=== PATIENT | male | born 1975 | race Hispanic/Latino ===

== ENCOUNTER 2022-11-17 07:29 | Observation (INO) | payer OTHER ==
[2022-11-15 09:01] LABS: BASOPHILS % 0.5 % (0.0-1.0); EOSINOPHILS # (AUTO) 0.1 (0.0-0.4); EOSINOPHILS % 1.6 % (0.0-6.0); HEMATOCRIT 45.5 % (38.2-49.6); LYMPHOCYTES # (AUTO) 1.7 (1.0-3.2); LYMPHOCYTES % 26.3 % (18.0-39.1); MEAN CORPUSCULAR HEMOGLOBIN 30.4 pg (28-32); MEAN CORPUSCULAR HGB CONC 35.2 g/dL (31-35); MEAN CORPUSCULAR VOLUME 86.5 fL (81-99); MONOCYTES # (AUTO) 0.6 (0.2-0.8); MONOCYTES % 10.1 % (4.4-11.3); NEUTROPHILS # (AUTO) 3.9 (2.1-6.9); NEUTROPHILS % 61.2 % (38.7-80.0); PLATELET COUNT 249 x10e3/uL (140-360); RED BLOOD COUNT 5.26 x10e6/uL (4.3-5.7); RED CELL DISTRIBUTION WIDTH 12.8 % (11.7-14.4)
[2022-11-15 09:20] LABS: INR 0.89; PARTIAL THROMBOPLASTIN TIME 30.2 seconds (23.8-35.5); PROTHROMBIN TIME 12.3 seconds (11.9-14.5)
[2022-11-15 09:26] LABS: ANION GAP 11.4 mmol/L (8-16); BLOOD UREA NITROGEN 11 mg/dL (7-26); BUN/CREATININE RATIO 13 (6-25); CALCIUM 9.4 mg/dL (8.4-10.2); CARBON DIOXIDE 29 mmol/L (22-29); CHLORIDE 103 mmol/L (98-107); CREATININE, SERUM 0.88 mg/dL (0.72-1.25); GLUCOSE 99 mg/dL (74-118); POTASSIUM 4.4 mmol/L (3.5-5.1); SODIUM 139 mmol/L (136-145)
[~2022-11-17] VITALS: Ht 198.1 cm; Wt 68.0 kg
[~2022-11-17 07:29] MED LIST: DEXAMETHASONE SOD PHOS INJ 4 MG/ML SDV ONE; LIDOCAINE HCL 2% LOCAL INJ 5 ML SDV VIAL INJ ONE; ONDANSETRON HCL INJ 2MG/ML 2ML 2 MG/ML VIAL ONE; POVIDONE IODINE 0.05% 0.05 % ML PO ONE; PROPOFOL IV EMULSION 10 MG/ML 20 ML VIAL ONE; ROCURONIUM BROMIDE 10 MG/ML 5ML VIAL IV ONE; SEVOFLURANE INHAL SOLN 250 ML PEN BTL ONE; SUGAMMADEX SODIUM 200 MG/2 ML VIAL IV ONE; ULTRAM 50MG50 MG PO
[2022-11-17] MEDS ORDERED: CEFAZOLIN SODIUM 2 GM ONE (08:10)
[2022-11-17] MEDS ORDERED: ALBUTEROL SULF 0.083% NEB SOLN 3 ML NEB ONE (08:30)
[2022-11-17] MEDS ORDERED: FENTANYL CITRATE/PF 100MCG/2 ML INJ ONE ×2 (08:58→14:29)
[2022-11-17] MEDS ORDERED: MIDAZOLAM HCL 2 MG/2 ML VIAL ONE (08:58)
[2022-11-17] MEDS ORDERED: SUGAMMADEX SODIUM 200 MG/2 ML VIAL IV ONE (09:55)
[2022-11-17] MEDS ORDERED: ACETAMINOPHEN 1000 MG/100 ML 100 ML IV ONE (09:55)
[2022-11-17] MEDS ORDERED: CARISOPRODOL 350 MG TAB PO PRN (12:15)
[2022-11-17] MEDS ORDERED: ZOLPIDEM TARTRATE 5 MG TAB PO PRN (12:15)
[2022-11-17] MEDS: LACTATED RINGER'S 1,000 ML IV SCH ×2 (12:15→17:27)
[2022-11-17] MEDS ORDERED: ACETAMINOPHEN 325 MG TAB PO PRN (12:15)
[2022-11-17] MEDS ORDERED: CEPACOL SORE THROAT LOZENGES PO PRN (12:15)
[2022-11-17] MEDS ORDERED: HYDROCODON-ACE1 EA12 PO (12:15)
[2022-11-17] MEDS ORDERED: MORPHINE SULFATE 5 MG/ML VIAL IM PRN (12:15)
[2022-11-17] MEDS ORDERED: ONDANSETRON HCL INJ 2MG/ML 2ML 2 MG/ML VIAL IV PRN (12:15)
[2022-11-17] MEDS ORDERED: HYDROMORPHONE 2MG/ML 2 MG/ML ML IV PRN (12:15)
[2022-11-17] MEDS ORDERED: MAGNESIUM/ALUMINUM/SIMETHICONE 30 ML UDC PO PRN (12:15)
[2022-11-17] MEDS ORDERED: PROMETHAZINE HCL (IM) 25 MG/ML VIAL IM PRN (12:15)
[2022-11-17 14:30] VITALS: BP 113/81
[2022-11-17 14:35] VITALS: BP 113/81
[2022-11-17 14:37] VITALS: BP 113/81
[2022-11-17 14:38] VITALS: BP 113/81
[2022-11-17] MEDS: OXYCODONE/ACETAMINOPHEN 5-325 1 EACH TABLET PO PRN ×2 (15:09→20:15)
[2022-11-17 16:00] VITALS: BP 121/84
[2022-11-17 20:16] VITALS: BP 121/84
[2022-11-18] MEDS: OXYCODONE/ACETAMINOPHEN 5-325 1 EACH TABLET PO PRN (03:47)
[2022-11-18] MEDS ORDERED: SODIUM CHLORIDE 0.9% 100 ML ONE (03:49)
[2022-11-18] MEDS: LACTATED RINGER'S 1,000 ML IV SCH (04:55)
[2022-11-18 09:02] VITALS: BP 114/81
[2022-11-18 09:12] VITALS: BP 114/81
[2022-11-18] MEDS ORDERED: ONDANSETRON HCL 4 MG ORAL DISINTEGRATING TAB PO PRN (13:00)
== END 2022-11-18 12:43 | disposition home or self-care (01) ==
LOC: OR 07:29 → PACU V 12:12 → MED/SURG 14:03
PROVIDERS: ADMIT Neurological Surgery; ATTEND Neurological Surgery
DX: M50.123 Cervical disc disorder at C6-C7 level with radiculopathy (principal); Z20.822 Contact with and (suspected) exposure to COVID-19; Z01.818 Encounter for other preprocedural examination; G89.29 Other chronic pain; Z28.310 Unvaccinated for COVID-19
CPT/HCPCS: 0223U; 20931; 22551; 22845; 36415; 71046; 72040; 76000; 80048; 85025; 85610; 85730; 86850; 86870; 86880; 86900; 86905; 88304; 88311; 93005; 99001; C1713 ×3; G0378 ×2; J0131; J0690 ×2; J1100; J2001; J2250; J2405 ×2; J2704; J3010; J7050

== ENCOUNTER → 2022-12-15 | Outpatient (CLI) | payer OTHER ==
[~2022-12-15] MED LIST changes: -DEXAMETHASONE SOD PHOS INJ 4 MG/ML SDV ONE; +HYDROCODON-ACE1 EA12 PO; -LIDOCAINE HCL 2% LOCAL INJ 5 ML SDV VIAL INJ ONE; -ONDANSETRON HCL INJ 2MG/ML 2ML 2 MG/ML VIAL ONE; -POVIDONE IODINE 0.05% 0.05 % ML PO ONE; -PROPOFOL IV EMULSION 10 MG/ML 20 ML VIAL ONE; -ROCURONIUM BROMIDE 10 MG/ML 5ML VIAL IV ONE; -SEVOFLURANE INHAL SOLN 250 ML PEN BTL ONE; -SUGAMMADEX SODIUM 200 MG/2 ML VIAL IV ONE
== END ==
LOC: RAD 09:28
PROVIDERS: ATTEND Neurological Surgery
DX: M50.20 Other cervical disc displacement, unspecified cervical region (principal); M43.22 Fusion of spine, cervical region
CPT/HCPCS: 72050